=== PATIENT | female | born 1990 | race Caucasian/White ===

== ENCOUNTER 2017-02-25 14:30 | Emergency (ER) | payer OTHER ==
[~2017-02-25] VITALS: Ht 175.3 cm; Wt 83.0 kg
[2017-02-25 15:25] VITALS: BP 150/60
[2017-02-25] MEDS ORDERED: DIPHTH,PERTUSS(ACELL),TET TOX 0.5 ML DISP.SYRIN. VAX IM ONE (15:30)
[2017-02-25] MEDS ORDERED: AMOX1TAB61 PO (15:36)
[2017-02-25] MEDS ORDERED: HYDR-971 PO (15:36)
--- NOTE | 2017-02-25 15:37 | PHYS DOC ---
Adult General Chief Complaint Chief Complaint: LACERATION/AVULSION HPI HPI Patient is a 27 year old female presents with upper lip laceration from a cat bite that happened today. Patient states her cat is up-to-date with its shots. Patient needs a tetanus. Review of Systems Review of Systems Constitutional: Denies fever or chills [] Eyes: Denies change in visual acuity, redness, or eye pain [] Musculoskeletal: Denies back pain or joint pain [] Integument: Upper lip laceration from a cat bite Neurologic: Denies headache, focal weakness or sensory changes [] Endocrine: Denies polyuria or polydipsia [] Current Medications Current Medications Current Medications Medications (Trade) Dose Ordered Sig/Nicola Start Time Stop Time Status Last Admin Dose Admin Diphtheria/ Tetanus/Acell Pertussis (Boostrix) 0.5 ml ONCE ONCE 02/25/17 15:30 02/25/17 15:31 UNV Physical Exam Physical Exam Constitutional: Well developed, well nourished, no acute distress, non-toxic appearance. [] HENT: Normocephalic, atraumatic, bilateral external ears normal, oropharynx moist, no oral exudates, nose normal. [] Skin: Left upper lip with a laceration approximately 3 cm long barely cutting through the vermilion border. This is a superficial first-degree laceration. Back: No tenderness, no CVA tenderness. [] Extremities: No tenderness, no cyanosis, no clubbing, ROM intact, no edema. [] Neurologic: Alert and oriented X 3, normal motor function, normal sensory function, no focal deficits noted. [] Psychologic: Affect normal, judgement normal, mood normal. [] EKG EKG [] Radiology/Procedures Radiology/Procedures [] Course & Med Decision Making Course & Med Decision Making Pertinent Labs and Imaging studies reviewed. (See chart for details) Patient has a superficial laceration from a cat bite on the left upper lip. She states she has cleaned the laceration thoroughly herself. Laceration does not need sutures. Patient was given tetanus shot in the ED. Discharged with Augmentin. She was worried about the cosmetic appearance of this laceration on her face when it heals. I provided her a plastic surgeon for follow-up at [facility] Provided her return precautions and discharged in stable condition. Dragon Disclaimer Dragon Disclaimer This electronic medical record was generated, in whole or in part, using a voice recognition dictation system. Departure Departure Impression: Primary Impression: Cat bite of face Disposition: 01 HOME, SELF-CARE Condition: STABLE Referrals: NO PCP (PCP) Please call Dr. Wilson or Salvador at [facility] and schedule an appointment as in the next 1-2 weeks. They are plastic surgons and will fix the scar. [phone] Patient Instructions: Animal Bite, [id number] Additional Instructions: You were seen for a laceration of the left upper lip from a cat bite. Keep the area very clean and dry. You can apply neosporin the area twice a day. Ensure you complete your antibiotics. Follow-up with the provided plastic surgeon to have the area repaired. Please come back to the ED at any point the area looks infected including increased redness, warmth, odor or yellow drainage from the area or if you have a fever. Scripts Hydrocodone/Apap 5-325 (NORCO 5-325 TABLET) 1 Each Tablet 1 TAB PO PRN Q6HRS Y for PAIN, #10 TAB 0 Refills Prov: ANDRE KAN APRN 02/25/17 Amoxicillin/Potassium Clav (AUGMENTIN 875-125 TABLET) 1 Each Tablet 1 TAB PO BID, #20 TAB Prov: ANDRE KAN APRN 02/25/17 Problem Qualifiers Primary Impression: Cat bite of face Encounter type: initial encounter Qualified Codes: S01.85XA - Open bite of other part of head, initial encounter; W55.01XA - Bitten by cat, initial encounter ANDRE KAN APRN Feb 25, 2017 15:37
== END 2017-02-25 16:25 | disposition home or self-care (01) ==
LOC: ER 14:30
DX: S01.511A Laceration without foreign body of lip, initial encounter (principal); W55.01XA Bitten by cat, initial encounter; Y93.89 Activity, other specified; Y99.8 Other external cause status; Y92.89 Other specified places as the place of occurrence of the external cause
CPT/HCPCS: 90471; 90715; 99283-25

== ENCOUNTER → 2019-07-24 | Outpatient (CLI) | payer OTHER ==
[~2019-07-24] MED LIST: AMOX1TAB61 PO; HYDR-3164 PO
--- NOTE | 2019-07-27 02:09 | KCIC ---
CERVICAL SPINE WO CONTRAST DATE: 07/24/2019 3:30 PM INDICATION: Neck pain. Bilateral upper extremity paresthesias TECHNIQUE: Multiplanar multisequence magnetic resonance imaging of the cervical spine was performed without administration of intravenous contrast using the standard cervical spine protocol. COMPARISON: None. FINDINGS: The cervical spine is normally aligned. No acute fracture. Minimal degenerative disc desiccation. Bone marrow signal intensity is normal. The spinal cord is normal in signal intensity. On the limited views of the cranial cavity and brain, the cerebellum and destini have normal morphology and signal characteristics. No Chiari malformation. No soft tissue abnormality. Normal signal voids are present in the vertebral arteries. C2-3: No significant spinal canal stenosis or neural foraminal narrowing. C3-4: Mild uncovertebral hypertrophy. Mild right neural foraminal narrowing. No spinal stenosis. C4-5: Mild uncovertebral hypertrophy. No significant spinal canal stenosis or neural foraminal narrowing. C5-6: Mild uncovertebral hypertrophy. No significant spinal canal stenosis or neural foraminal narrowing. C6-7: No significant spinal canal stenosis or neural foraminal narrowing. C7-T1: No significant spinal canal stenosis or neural foraminal narrowing. IMPRESSION: Mild cervical spondylosis, detailed level by level above. Electronically signed by: Abhijeet Almeida MD (07/27/2019 2:06 AM) [facility]
== END | disposition home or self-care (01) ==
LOC: KCIC MRI 15:15
PROVIDERS: ATTEND Physical Medicine & Rehabilitation Pain Medicine
DX: M47.22 Other spondylosis with radiculopathy, cervical region (principal); M48.02 Spinal stenosis, cervical region
CPT/HCPCS: 72141